=== PATIENT | female | born 2000 | race Caucasian/White ===

== ENCOUNTER 2019-07-21 21:50 | Emergency (ER) | payer BC ==
[~2019-07-21] VITALS: Ht 165.1 cm; Wt 59.0 kg
[2019-07-21 21:56] VITALS: BP_SYST 139
--- NOTE | 2019-07-21 22:10 | NUR ---
Patient to ER h1 for evaluation. Side rails up.
--- NOTE | 2019-07-21 22:17 | NUR ---
Patient complains of a possible allergic reaction to "incense" yesterday. 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 Pt states that after mass yesterday she experienced a headache. Pt took an allergy med today and felt better but around 5pm patient started to feel her "throat closing in" intermittently. Pt is satting at 100% room air. Patient denies rash, shortness of breath. No other injuries/complaints per patient or noted.
--- NOTE | 2019-07-21 22:51 | NUR ---
ER Dr. Bello at bedside examining patient.
[2019-07-21] MEDS ORDERED: ALBUTEROL SULFATE 0.083% 2.5 MG/3 ML VIAL.NEB INH ONE (23:15)
--- NOTE | 2019-07-21 23:15 | NUR ---
RT at bedside, administering breathing treatment.
--- NOTE | 2019-07-22 01:25 | NUR ---
Verbal orders received by Dr. Bello to administer Prednisone 40mg PO. Medication was given, pt tolerated well. Will continue to monitor.
[2019-07-22] MEDS ORDERED: PREDNISONE 20 MG TABLET PO ONE (01:30)
[2019-07-22] MEDS ORDERED: PREDNISONE 20 MG TABLET ONE (01:41)
[2019-07-22 01:46] VITALS: BP_SYST 131
--- NOTE | 2019-07-22 01:47 | NUR ---
Patient given written and verbal discharge instructions and verbalizes understanding. ER MD discussed with patient the results and treatment provided. Patient in stable condition. ID arm band removed. Rx of Prednisone given. Patient educated on pain management and to follow up with PMD. Pain Scale 0. Opportunity for questions provided and answered. Medication side effect fact sheet provided.
== END 2019-07-22 01:47 | disposition home or self-care (01) ==
LOC: SED 21:50
DX: T78.40XA Allergy, unspecified, initial encounter (principal); X58.XXXA Exposure to other specified factors, initial encounter
CPT/HCPCS: 94640; 99283; J7512; J7613